=== PATIENT | female | born 1960 | race Caucasian/White ===

== ENCOUNTER 2017-09-22 12:50 | Inpatient (IN) | payer OTHER ==
[2017-09-22] MEDS ORDERED: ONDANSETRON ODT 4 MG TAB PO STA (12:53)
[2017-09-22] MEDS ORDERED: ONDANSETRON 4 MG/2 ML VIAL IVP STA (12:54)
[2017-09-22] MEDS ORDERED: HEPARIN SODIUM,PORCINE 5,000 UNIT/ML 1 ML VIAL IV STA ×2 (12:58)
[2017-09-22] MEDS ORDERED: NITROGLYCERIN SL TABS 0.4 MG TAB SUBLINGUAL STA (12:58)
[2017-09-22] MEDS ORDERED: ASPIRIN 81 MG PO STA (12:58)
[2017-09-22] MEDS ORDERED: SODIUM CHLORIDE 0.9% 1,000 ML IV STA (12:58)
[2017-09-22] MEDS ORDERED: NITROGLYCERIN SL TABS 0.4 MG TAB SUBLINGUAL PRN (12:59)
--- NOTE | 2017-09-22 13:01 | ED ---
General Adult HPI - General Chief complaint: Chest Pain Stated complaint: Chest pain Time Seen by Provider: 09/22/17 12:52 Source: patient, RN notes reviewed Mode of arrival: EMS Limitations: no limitations - History of Present Illness Initial comments: Patient is a pleasant 57-year-old female presenting to the emergency department with complaints of chest discomfort. Onset was approximately 30 minutes ago. Discomfort feels like pressure and is severe. Patient does have associated nausea and dyspnea and diaphoresis. No history of similar symptoms previously. Radiation is towards the left arm. - Related Data Home Medications Medication Instructions Recorded Confirmed Atorvastatin [Lipitor] 40 mg PO HS 09/22/17 09/22/17 Cholecalciferol (Vitamin D3) 2,000 unit PO DAILY 09/22/17 09/22/17 [Vitamin D3] Cyanocobalamin [Vitamin B-12] 500 mcg PO DAILY 09/22/17 09/22/17 FLUoxetine HCL [PROzac] 40 mg PO DAILY 09/22/17 09/22/17 Losartan Potassium [Cozaar] 25 mg PO DAILY 09/22/17 09/22/17 Magnesium Oxide [Mag-Ox] 400 mg PO DAILY 09/22/17 09/22/17 Pantoprazole [Protonix] 40 mg PO DAILY 09/22/17 09/22/17 Allergies Allergy/AdvReac Type Severity Reaction Status Date / Time sulfamethoxazole AdvReac Unknown Verified 09/22/17 12:56 [From Bactrim] trimethoprim [From Bactrim] AdvReac Unknown Verified 09/22/17 12:56 Review of Systems ROS Statement: Those systems with pertinent positive or pertinent negative responses have been documented in the HPI. ROS Other: All systems not noted in ROS Statement are negative. Constitutional: Denies: fever Eyes: Denies: eye pain ENT: Denies: ear pain Respiratory: Reports: dyspnea Cardiovascular: Reports: chest pain Endocrine: Denies: fatigue Gastrointestinal: Denies: abdominal pain Genitourinary: Denies: dysuria Musculoskeletal: Denies: back pain Skin: Denies: rash Neurological: Denies: weakness Past Medical History Past Medical History: Hyperlipidemia History of Any Multi-Drug Resistant Organisms: None Reported Additional Past Surgical History / Comment(s): ear Past Psychological History: No Psychological Hx Reported Smoking Status: Current every day smoker Past Alcohol Use History: None Reported Past Drug Use History: None Reported General Exam Limitations: no limitations General appearance: alert, in distress Head exam: Present: atraumatic Eye exam: Present: normal appearance Neck exam: Present: normal inspection Respiratory exam: Present: normal lung sounds bilaterally. Absent: chest wall tenderness Cardiovascular Exam: Present: regular rate, normal rhythm Expanded Peripheral pulses: 2+: Radial (R), Radial (L), Posterior Tibialis (R), Posterior Tibialis (L) GI/Abdominal exam: Present: soft. Absent: distended, tenderness Extremities exam: Present: normal inspection. Absent: pedal edema, calf tenderness Neurological exam: Present: alert Psychiatric exam: Present: normal affect, normal mood Skin exam: Present: diaphoretic Course Vital Signs 09/22/17 12:52 Pulse Rate 76 Respiratory 18 Rate Blood Pressure 112/63 O2 Sat by Pulse 96 Oximetry - Reevaluation(s) Reevaluation #1: 09/22/17 13:00 Practitioner Sarah watkins was notified and was in the emergency department evaluating patient. Case was also discussed with cardiology Dr. Scanlon. Dr Decker has been paged for admission. 09/22/17 13:04 Patient has gone to [facility]. EKG Findings - EKG Comments: EKG Findings:: Normal sinus rhythm 75. PA 170. QRS 86. QT 410. QTc 457. Normal axis. Significant inferior ST elevation. there is some ST depression V1 and V2. Normal QRS. Medical Decision Making - Medical Decision Making Case was earlier discussed with Dr. Decker, who will admit for [facility]. - Lab Data Result diagrams: 09/22/17 12:51 09/22/17 12:51 Lab Results 09/22/17 09/22/17 09/22/17 Range/Units 12:51 12:51 12:51 WBC 10.0 (3.8-10.6) k/uL RBC 4.92 (3.80-5.40) m/uL Hgb 14.1 (11.4-16.0) gm/dL Hct 41.3 (34.0-46.0) % MCV 83.9 (80.0-100.0) fL MCH 28.6 (25.0-35.0) pg MCHC 34.0 (31.0-37.0) g/dL RDW 12.8 (11.5-15.5) % Plt Count 449 (150-450) k/uL PT (9.0-12.0) sec INR (<1.2) APTT (22.0-30.0) sec Sodium 138 (137-145) mmol/L Potassium 3.8 (3.5-5.1) mmol/L Chloride 105 (98-107) mmol/L Carbon Dioxide 22 (22-30) mmol/L Anion Gap 11 mmol/L BUN 11 (7-17) mg/dL Creatinine 0.64 (0.52-1.04) mg/dL Est GFR (MDRD) Af Amer >60 (>60 ml/min/1.73 sqM) Est GFR (MDRD) Non-Af >60 (>60 ml/min/1.73 sqM) Glucose 118 H (74-99) mg/dL Calcium 9.8 (8.4-10.2) mg/dL Total Bilirubin 0.4 (0.2-1.3) mg/dL AST 26 (14-36) U/L ALT 40 (9-52) U/L Alkaline Phosphatase 111 (38-126) U/L Total Creatine Kinase 90 (30-135) U/L CK-MB (CK-2) 1.0 (0.0-2.4) ng/mL CK-MB (CK-2) Rel Index 1.1 Troponin I 0.033 (0.000-0.034) ng/mL Total Protein 6.7 (6.3-8.2) g/dL Albumin 4.3 (3.5-5.0) g/dL 09/22/17 Range/Units 12:51 WBC (3.8-10.6) k/uL RBC (3.80-5.40) m/uL Hgb (11.4-16.0) gm/dL Hct (34.0-46.0) % MCV (80.0-100.0) fL MCH (25.0-35.0) pg MCHC (31.0-37.0) g/dL RDW (11.5-15.5) % Plt Count (150-450) k/uL PT 10.1 (9.0-12.0) sec INR 1.0 (<1.2) APTT 25.6 (22.0-30.0) sec Sodium (137-145) mmol/L Potassium (3.5-5.1) mmol/L Chloride (98-107) mmol/L Carbon Dioxide (22-30) mmol/L Anion Gap mmol/L BUN (7-17) mg/dL Creatinine (0.52-1.04) mg/dL Est GFR (MDRD) Af Amer (>60 ml/min/1.73 sqM) Est GFR (MDRD) Non-Af (>60 ml/min/1.73 sqM) Glucose (74-99) mg/dL Calcium (8.4-10.2) mg/dL Total Bilirubin (0.2-1.3) mg/dL AST (14-36) U/L ALT (9-52) U/L Alkaline Phosphatase (38-126) U/L Total Creatine Kinase (30-135) U/L CK-MB (CK-2) (0.0-2.4) ng/mL CK-MB (CK-2) Rel Index Troponin I (0.000-0.034) ng/mL Total Protein (6.3-8.2) g/dL Albumin (3.5-5.0) g/dL - Radiology Data Interpreted by me: Chest x-ray shows no gross abnormality. No mediastinal widening. Disposition Clinical Impression: ST elevation myocardial infarction (STEMI) Disposition: ADMITTED IP TO THIS [facility] Condition: Critical Decision Time: 13:04
[2017-09-22] MEDS ORDERED: ATORVASTATIN 80 MG TAB PO STA (13:03)
[2017-09-22 13:09] LABS: HCT 41.3 % (34.0-46.0); HGB 14.1 gm/dL (11.4-16.0); MCH 28.6 pg (25.0-35.0); MCV 83.9 fL (80.0-100.0); Mean Platelet Volume 6.7; Platelet Count 449 k/uL (150-450); RBC 4.92 m/uL (3.80-5.40); RDW 12.8 % (11.5-15.5)
[2017-09-22 13:13] LABS: Partial Thromboplastin Time 25.6 sec (22.0-30.0); Prothrombin Time 10.1 sec (9.0-12.0)
[2017-09-22] MEDS ORDERED: MORPHINE SULFATE 4 MG/ML SYRINGE IVP ONE (13:13)
--- NOTE | 2017-09-22 13:13 | XR ---
EXAMINATION TYPE: XR chest 1V portable DATE OF EXAM: 09/22/2017 Comparison: 07/01/2013 Clinical History: 57-year-old female with chest pain Findings: Heart normal size. Aorta and pulmonary vasculature within normal limits. Some stringy atelectasis at the left base. No consolidation or pleural effusion. Impression: Strandy left basilar atelectasis. No acute cardiopulmonary process.
[2017-09-22] MEDS ORDERED: TIROFIBAN 12.5MG-250ML NS 250 ML IV ONE (13:16)
[2017-09-22] MEDS ORDERED: TIROFIBAN BOLUS 12.5MG/250 ML BAG IV ONE ×2 (13:17→13:19)
[2017-09-22 13:18] LABS: ALT 40 U/L (9-52); AST 26 U/L (14-36); Albumin 4.3 g/dL (3.5-5.0); Alkaline Phosphatase 111 U/L (38-126); Anion Gap 11 mmol/L; Blood Urea Nitrogen 11 mg/dL (7-17); Calcium 9.8 mg/dL (8.4-10.2); Carbon Dioxide 22 mmol/L (22-30); Chloride 105 mmol/L (98-107); Glucose 118 mg/dL (74-99); Potassium 3.8 mmol/L (3.5-5.1); Sodium 138 mmol/L (137-145); Total Bilirubin 0.4 mg/dL (0.2-1.3); Total Protein 6.7 g/dL (6.3-8.2)
[2017-09-22] MEDS ORDERED: LIDOCAINE 2% INJ 20 MG/ML SQ ONE (13:19)
[2017-09-22] MEDS ORDERED: TIROFIBAN 12.5MG-0.9% NS PMX 250 ML BAG IV ONE (13:24)
--- NOTE | 2017-09-22 13:27 | P.CRDCN ---
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 EMS was called and the patient was brought to [facility] ER, the patient initial EKG performed on arrival here showed an acute inferior lateral ST elevation myocardial infarction. Patient was given aspirin, IV heparin bolus, sublingual nitroglycerin, Lipitor, and Dilaudid 0.5mg for pain. Patient was advised that she would need to go directly to the cardiac catheterization lab to undergo cardiac catheterization emergently. The risks and benefits were explained to the patient in detail. Chest x-ray was performed and patient was brought directly to the cardiac catheterization lab. Procedure to be performed by Dr. Sky Scanlon. Past Medical History Past Medical History: Hyperlipidemia History of Any Multi-Drug Resistant Organisms: None Reported Additional Past Surgical History / Comment(s): ear Past Psychological History: No Psychological Hx Reported Smoking Status: Current every day smoker Past Alcohol Use History: None Reported Past Drug Use History: None Reported Medications and Allergies Home Medications Medication Instructions Recorded Confirmed Type Unable To Assess [Unable to Assess] 09/22/17 09/22/17 History Allergies Allergy/AdvReac Type Severity Reaction Status Date / Time sulfamethoxazole AdvReac Unknown Verified 09/22/17 12:56 [From Bactrim] trimethoprim [From Bactrim] AdvReac Unknown Verified 09/22/17 12:56 Physical Exam Vitals: Vital Signs Pulse Resp BP Pulse Ox 09/22/17 12:52 76 18 112/63 96 Intake and Output 09/21/17 09/22/17 09/22/17 22:59 06:59 14:59 Other: Weight 74.843 kg Patient Weight 09/23/17 06:59 Weight 74.843 kg PHYSICAL EXAMINATION: HEENT: Head is atraumatic, normocephalic. Pupils equal, round. Neck is supple. There is no elevated jugular venous pressure. HEART EXAMINATION: Heart S1, S2 normal. No murmur or gallop heard. CHEST EXAMINATION:[ Lungs are clear to auscultation and precussion. Patient was having a chest discomfort which she rated at a 10 out of 10. ABDOMEN: Soft, nontender. Bowel sounds are heard. No organomegaly noted. EXTREMITIES: 2+ peripheral pulses with no evidence of peripheral edema and no calf tenderness noted. NEUROLOGIC patient is awake, alert and oriented -3. . Results 09/22/17 12:51 Coagulation 09/22/17 Range/Units 12:51 PT 10.1 (9.0-12.0) sec APTT 25.6 (22.0-30.0) sec CBC 09/22/17 Range/Units 12:51 WBC 10.0 (3.8-10.6) k/uL RBC 4.92 (3.80-5.40) m/uL Hgb 14.1 (11.4-16.0) gm/dL Hct 41.3 (34.0-46.0) % Plt Count 449 (150-450) k/uL Current Medications Generic Name Dose Route Start Last Admin Trade Name Freq PRN Reason Stop Dose Admin Sodium Chloride 1,000 mls @ 999 mls/hr 09/22/17 12:58 09/22/17 13:02 Saline 0.9% IV 09/22/17 13:58 999 mls/hr .Q1H1M STA Administration Nitroglycerin 0.4 mg 09/22/17 12:59 Nitrostat SUBLINGUAL Q5M PRN Chest Pain Intake and Output 09/21/17 09/22/17 09/22/17 22:59 06:59 14:59 Other: Weight 74.843 kg Patient Weight 09/23/17 06:59 Weight 74.843 kg 09/22/17 12:51 EKG Interpretations (text) EKG showed normal sinus rhythm with ST elevation in the inferior and lateral leads. ST depression noted in the anterior leads. Assessment and Plan Plan: Assessment and plan #[address] elevation PR #2 nicotine dependence #3 hypertension #4 hyperlipidemia Plan Patient was taken directly to the cardiac catheterization lab, risks and benefits were explained to the patient in detail. Further recommendations to follow. DNP note has been reviewed, I agree with a documented findings and plan of care. Patient was seen and examined.
[2017-09-22] MEDS ORDERED: DOPamine DRIP 800 MG in DEXTROSE/WATER 1 500ML.BAG IV ONE (13:33)
[2017-09-22] MEDS ORDERED: METOPROLOL TARTRATE 5 MG/5 ML VIAL IVP ONE (13:38)
[2017-09-22 13:44] LABS: Troponin I 0.033 ng/mL (0.000-0.034)
[2017-09-22] MEDS ORDERED: SODIUM CHLORIDE 0.9% 1,000 ML IV ONE (13:45)
[2017-09-22] MEDS ORDERED: NITROGLYCERIN 1000MCG/10ML SYRINGE INTRACORON ONE (13:48)
[2017-09-22] MEDS ORDERED: TICAGRELOR 90 MG TAB PO ONE (13:49)
[2017-09-22] MEDS ORDERED: TICAGRELOR 90 MG TAB ONE (13:50)
[2017-09-22] MEDS ORDERED: IOHEXOL 350 MG/ML (PER ML) 100ML BTL INJ ONE (13:57)
[2017-09-22 14:31] LABS: Glucose,Whole Blood 110 mg/dL (75-99)
[2017-09-22] MEDS ORDERED: RX INFO: IV CONTRAST WAS GIVEN 1 EACH MISC MISCELLANE PRN (14:44)
[2017-09-22] MEDS ORDERED: TIROFIBAN 12.5MG-250ML NS 250 ML IV SCH (15:15)
--- NOTE | 2017-09-22 15:39 | P.HPIM ---
History of Present Illness H&P Date: 09/22/17 Chief Complaint: Chest pain This is a 57-year-old female, patient of [facility]. She has a known past medical history of hyperlipidemia, nicotine dependence and depression. Patient reports she takes the Cozaar not for hypertension but was found to have calcifications in her aorta. Patient presents to the emergency room with complaints of chest pain in the center of her chest that radiated down the back of her left arm. Symptoms started around noon. EMS was called and she was brought into [facility] ER. Initial EKG had shown an acute inferior lateral ST elevation myocardial infarction. She was started on IV heparin given aspirin and nitro and Lipitor. And also given pain medication. Cardiology with notified immediately and we'll consult patient in the emergency room and took her immediately to the cardiac cath rn. Patient is now in the ICU status post stent to the RCA. She did require dopamine for a few minutes after surgery for bradycardia. It is now resolved and she is off of dopamine. Patient is chest pain-free at this time. She does report having had a stress test a little over a month ago that was negative. Patient admits to having some nausea, diaphoresis and shortness of breath with her chest pain. Patient denies any fever or chills or sweats. Denies any vomiting. Denies any bowel movement changes or urinary symptoms. She does have a significant family history for heart disease. Review of Systems Please refer to HPI otherwise unremarkable Past Medical History Past Medical History: Hyperlipidemia History of Any Multi-Drug Resistant Organisms: None Reported Additional Past Surgical History / Comment(s): ear Past Psychological History: No Psychological Hx Reported Smoking Status: Current every day smoker Past Alcohol Use History: None Reported Past Drug Use History: None Reported Additional History: Brother with heart disease and LA age 42. Dad open-heart surgery Medications and Allergies Home Medications Medication Instructions Recorded Confirmed Type Atorvastatin [Lipitor] 40 mg PO HS 09/22/17 09/22/17 History Cholecalciferol (Vitamin D3) 2,000 unit PO DAILY 09/22/17 09/22/17 History [Vitamin D3] Cyanocobalamin [Vitamin B-12] 500 mcg PO DAILY 09/22/17 09/22/17 History FLUoxetine HCL [PROzac] 40 mg PO DAILY 09/22/17 09/22/17 History Losartan Potassium [Cozaar] 25 mg PO DAILY 09/22/17 09/22/17 History Magnesium Oxide [Mag-Ox] 400 mg PO DAILY 09/22/17 09/22/17 History Pantoprazole [Protonix] 40 mg PO DAILY 09/22/17 09/22/17 History Allergies Allergy/AdvReac Type Severity Reaction Status Date / Time sulfamethoxazole AdvReac Unknown Verified 09/22/17 12:56 [From Bactrim] trimethoprim [From Bactrim] AdvReac Unknown Verified 09/22/17 12:56 Physical Exam Vitals: Vital Signs Pulse Resp BP Pulse Ox 09/22/17 12:52 76 18 112/63 96 Intake and Output 09/22/17 09/22/17 09/22/17 06:59 14:59 22:59 Intake Total 835.52 Balance 835.52 Intake: IV 835.52 Other: Weight 74.843 kg Patient Weight 09/23/17 06:59 Weight 74.843 kg Head normocephalic Neck supple Lungs clear to auscultation bilaterally no wheezing or crackles Heart regular rate and rhythm S1-S2, no rub or gallop Abdomen is soft nontender nondistended positive bowel sounds no hepatosplenomegaly Extremities no edema Neuro alert and orientated to 3 Results CBC & Chem 7: 09/22/17 12:51 09/22/17 12:51 Labs: Abnormal Lab Results - Last 24 Hours (Table) 09/22/17 09/22/17 Range/Units 12:51 14:29 Glucose 118 H (74-99) mg/dL POC Glucose (mg/dL) 110 H (75-99) mg/dL Assessment and Plan Assessment: 1. Acute inferior lateral ST elevated myocardial infarction: Underwent emergent heart catheterization with stent to the RCA. Cardiology is added Brilinta, aspirin 81 mg daily and Lipitor 80 mg daily to patient's regimen 2. Nicotine dependence: Discussed smoking cessation for greater than 3 minutes. We'll add nicotine patch 3. Hyperlipidemia cardiology is increased her Lipitor to 80 mg daily 4. Atelectasis noted on chest x-ray order incentive spirometer. 5. GERD continue Protonix Time with Patient: Greater than 30 (Greater than 50% of the total time spent in counseling and coordination of care.I performed an examination of the patient and discussed their management with the physician Environmental Science Professor. I have reviewed the Physician Environmental Science Professor's notes and agree with the documented findings and plan of care)
[2017-09-22] MEDS ORDERED: ATROPINE SULFATE 0.1 MG/ML 10ML SYRINGE ONE (16:03)
[2017-09-22] MEDS ORDERED: POTASSIUM CHLORIDE ER 20 MEQ TAB.ER PO STA (16:27)
[2017-09-22] MEDS: SODIUM CHLORIDE 0.9% 1,000 ML IV SCH ×2 (17:32→23:42)
[2017-09-22] MEDS: NICOTINE 21MG/24HR PATCH TRANSDERM SCH (19:08)
[2017-09-22] MEDS: LOSARTAN 25 MG TAB PO SCH (20:17)
[2017-09-22] MEDS ORDERED: HYDROmorphone 0.5 MG/0.5 ML SYRINGE IVP PRN (21:27)
--- NOTE | 2017-09-22 22:23 | CC ---
CARDIAC CATHETERIZATION REPORT DATE OF SERVICE: 09/22/2017. PROCEDURES: 1. Left heart catheterization and coronary angiography. 2. Percutaneous transluminal coronary angioplasty and stenting of totally occluded dominant mid right coronary artery in the setting of an acute inferior ST-elevation myocardial infarction with reperfusion accomplished in 38 minutes. Moderate conscious sedation time 39 minutes. Moderate conscious sedation was provided with a combination of fentanyl and Versed along with Benadryl and patient was monitored very closely with oxygen saturation, vital signs and rhythm strips. CLINICAL INFORMATION: Ms. Gabrielle Aparicio is a lady with a history of underlying depression who has a primary care physician by name Dr. Laurita Hopper. She presented to the hospital with chest pain and ST elevation involving the inferior apical lateral leads suggestive of acute inferior ST-elevation NH. She was evaluated by nurse practitioner Dr. Sarah Kenny and then I evaluated the patient in the cath via supervisor laboratory and noted that she was having a 10/10 pain, but remained hemodynamically stable. I advised urgent cardiac catheterization and proceeded to perform the procedure expeditiously. The patient had allergies to SULFA. She had a strong family history of CAD and she has smoked 1 to 1-1/2 packs daily. Cholesterol status is unknown. She has no hypertension or diabetes. Her brother had an NH at less than 45 years of age and her parents also apparently had a heart attack at an early age. PROCEDURE NOTE: Under local anesthesia and strict aseptic precautions, a 6-C[place]ican introducer was placed in the right femoral artery using a micropuncture technique. Using a standard right Yumiko diagnostic catheter, I performed selective coronary angiography of the right coronary artery and noted that it was totally occluded. I then performed selective coronary angiography of the left system with a standard left Yumiko catheter. I noted that there was noncritical disease, but diffuse disease was noted in the left system. I then performed prompt intervention of the RCA and then after the intervention of the RCA, I checked LV pressures, but did not perform an LV gram. The sheath was sutured and patient was sent to the room in a stable condition. During the procedure, the patient became hypotensive and required IV fluids and also dopamine for a short while. With this, she developed nausea, vomiting, emesis that occurred in the supervisor laboratory. Very transiently I used dopamine, but then this was discontinued and her blood pressure stabilized very nicely. The patient received Aggrastat 2 boluses and infusion as per protocol and she also received 180 mg of Brilinta in the supervisor laboratory. The sheath was sutured and she was sent to the ICU in a stable condition. The findings and results were discussed with the patient and her sister. CARDIAC CATHETERIZATION FINDINGS: The left ventricular end-diastolic pressure was about 15 mmHg without any gradient across the aortic valve. CORONARY ANGIOGRAPHY FINDINGS: Right coronary artery: A very dominant vessel, moderately calcified, totally occluded in the midportion after 2 small acute marginal branches. This is a very large artery that divides into a large acute marginal branch distally and then bifurcates into a large distribution PDA and PLV, both of which have diffuse disease, but no critical stenosis. RCA is dominant, occluded in the midportion. Left main coronary artery: Short, patent vessel, free of significant disease that bifurcates into LAD and circumflex. There is mild calcification noted in the left main coronary artery. Left anterior descending coronary artery: This is a good caliber vessel and a good distribution vessel, had a 30%-40% lesion in the proximal 1/3, gives off a large sized diagonal branch and then there is another 40% lesion which is long and calcified and the vessel runs all the way to the apex, supplying a sizable amount of myocardium, giving off septal branches. The LAD is therefore a diffusely diseased vessel with lesions of anywhere between 30%-45% throughout with some calcification. Left posterior circumflex coronary artery: Technically this is a nondominant vessel, gives off a single obtuse marginal that runs laterally and there is an AV groove branch that is tortuous and has mild irregularities. No significant disease in the circumflex system. Left ventriculogram: This was not performed. 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 An left ventriculogram was not performed. RECOMMENDATIONS: I proceeded to perform intervention of the totally occluded RCA in the same setting. PCI PROCEDURE DETAILS: The standard right Yumiko type guide catheter of 6-C[place]ican caliber was used to cannulate the right coronary artery. A BMW wire was used to cross the lesion. Pre- dilatation was performed using a 2.5 caliber 12 mm Trek balloon. Multiple inflations were given. This was a very long lesion. I then used a 33 mm long 2.75 caliber Xience stent and deployed this. The distal end of the stent was placed just a little bit before the bifurcation and the proximal end of the stent was at the total occlusion. Excellent angiographic result was achieved. Distally beyond the stented segment, there was about a 40% lesion, but there was also diffuse disease in this segment of RCA. I tried to advance an 8 mm 2.5 caliber Xience stent, but the stent kept butting against the previously placed stent and therefore I decided not to pursue this anymore. I used 2 wires, but even with this, I was unable to advance the stent. I felt that we had a YANELIS-3 flow. Patient had relief of chest pain and remarkable improvement in ST-segment changes and hemodynamic stability and therefore I decided not to pursue any further intervention. We had an excellent angiographic result with a YANELIS-3 flow. The entire RCA was opacified and the ST segments improved remarkably. I therefore discussed with the patient the results, sutured the sheath, went and spoke to the patient's daughter and sent her to the ICU with the understanding that the sheath would be pulled in the next 3 hours. The ACT was about 270. Excellent angiographic result without complication was achieved. Results were discussed with the patient and family. MMODL / IJN: [id number] /
--- NOTE | 2017-09-22 22:35 | LTR ---
Dear Dr. Hopper: I an hereby sending you a procedure note on Mrs. Gabrielle Aparicio. This lady presented with acute inferior MA, underwent stenting of RCA with excellent angiographic result. Her right groin has some ecchymosis. She will be watched very closely for the next 48 hours. She has a drug-eluting stent and should be on a dual antiplatelet therapy for a 1 year without interruption. Thank you for your referral and please do call for questions. With kindest regards. Sincerely yours, MMODL / IJN: [id number] /
[2017-09-23 05:18] LABS: Basophils % (A) 0 %; Eosinophils # (A) 0.1 k/uL (0-0.7); Eosinophils % (A) 1 %; HCT 39.1 % (34.0-46.0); HGB 12.8 gm/dL (11.4-16.0); Lymphocytes # (A) 1.1 k/uL (1.0-4.8); Lymphocytes % (A) 13 %; MCH 28.3 pg (25.0-35.0); MCHC 32.6 g/dL (31.0-37.0); MCV 86.8 fL (80.0-100.0); Mean Platelet Volume 6.7; Monocytes # (A) 0.4 k/uL (0-1.0); Monocytes % (A) 5 %; Neutrophils # (A) 6.4 k/uL (1.3-7.7); Neutrophils % (A) 79 %; Platelet Count 325 k/uL (150-450); RBC 4.51 m/uL (3.80-5.40); RDW 12.8 % (11.5-15.5); WBC 8.1 k/uL (3.8-10.6)
[2017-09-23 05:30] LABS: Anion Gap 8 mmol/L; Blood Urea Nitrogen 8 mg/dL (7-17); Calcium 9.1 mg/dL (8.4-10.2); Carbon Dioxide 27 mmol/L (22-30); Chloride 106 mmol/L (98-107); Glucose 113 mg/dL (74-99); Magnesium 1.8 mg/dL (1.6-2.3); Potassium 4.2 mmol/L (3.5-5.1); Sodium 141 mmol/L (137-145)
[2017-09-23] MEDS: MAGNESIUM SULFATE-D5W PMX 1 GM in DEXTROSE/WATER 1 100ML.BAG IVPB SCH ×2 (08:27→09:56)
[2017-09-23] MEDS: MAGNESIUM OXIDE 400 MG TAB PO SCH (08:28)
[2017-09-23] MEDS: ASPIRIN 81 MG PO SCH (08:28)
[2017-09-23] MEDS: PANTOPRAZOLE 40 MG TABLET PO SCH (08:28)
[2017-09-23] MEDS: FLUoxetine HCL 20 MG CAP PO SCH (08:28)
[2017-09-23] MEDS: TICAGRELOR 90 MG TAB PO SCH ×2 (08:29→20:25)
[2017-09-23] MEDS: ATORVASTATIN 80 MG TAB PO SCH (08:29)
[2017-09-23] MEDS: NICOTINE 21MG/24HR PATCH TRANSDERM SCH (08:30)
[2017-09-23] MEDS ORDERED: FLUoxetine HCL 20 MG CAP PO SCH (09:00)
--- NOTE | 2017-09-23 10:30 | ECHOF ---
Referral Reason:STEMI MEASUREMENTS -------- HEIGHT: 170.2 cm WEIGHT: 74.8 kg BP: 133/71 IVSd: 1.1 cm (0.6 - 1.1) LVIDd: 4.7 cm (3.9 - 5.3) LVPWd: 0.7 cm (0.6 - 1.1) IVSs: 1.5 cm LVIDs: 3.2 cm LVPWs: 0.9 cm LAESV Index (A-L): 17.62 ml/m EPSS: 0.8 cm MV E Manav: 0.39 m/s MV DecT: 266 ms MV A Manav: 0.67 m/s MV E/A Ratio: 0.58 RAP: 5.00 mmHg RVSP: 18.29 mmHg MV EF SLOPE: 63.12 mm/s (70 - 150) MV EXCURSION: 2.41 cm (> 18.000) FINDINGS -------- Sinus rhythm. This was a technically good study. The left ventricular size is normal. There is mild concentric left ventricular hypertrophy. Overa ll left ventricular systolic function is low-normal with, an EF between 50 - 55 %. Basal inferior L V wall motion is hypokinetic. The right ventricle is normal in size. Normal LA size by volume 22+/-6 ml/m2. The right atrial size is normal. The aortic valve is trileaflet, and appears structurally normal. No aortic stenosis or regurgitation. Mild mitral regurgitation is present. Mild tricuspid regurgitation present. There is no evidence of pulmonary hypertension. The right v entricular systolic pressure, as measured by Doppler, is 18.29mmHg. There is no pulmonic regurgitation present. The aortic root size is normal. There is no pericardial effusion. CONCLUSIONS -------- 1. Sinus rhythm. 2. The left ventricular size is normal. 3. There is mild concentric left ventricular hypertrophy. 4. Overall left ventricular systolic function is low-normal with, an EF between 50 - 55 %. 5. Basal inferior LV wall motion is hypokinetic. 6. The right ventricle is normal in size. 7. Normal LA size by volume 22+/-6 ml/m2. 8. The aortic valve is trileaflet, and appears structurally normal. No aortic stenosis or regurgitati on. 9. Mild mitral regurgitation is present. 10. Mild tricuspid regurgitation present. 11. There is no evidence of pulmonary hypertension. 12. The right ventricular systolic pressure, as measured by Doppler, is 18.29mmHg. 13. There is no pulmonic regurgitation present. 14. The aortic root size is normal. 15. There is no pericardial effusion. STEEL ERECTING PUSHER: Keyonna Magdaleno RDCS
--- NOTE | 2017-09-23 12:07 | P.PN ---
Subjective Progress Note Date: 09/23/17 This is a 57-year-old female, patient of [facility]. She has a known past medical history of hyperlipidemia, nicotine dependence and depression. Patient reports she takes the Cozaar not for hypertension but was found to have calcifications in her aorta. Patient presents to the emergency room with complaints of chest pain in the center of her chest that radiated down the back of her left arm. Symptoms started around noon. EMS was called and she was brought into [facility] ER. Initial EKG had shown an acute inferior lateral ST elevation myocardial infarction. She was started on IV heparin given aspirin and nitro and Lipitor. And also given pain medication. Cardiology with notified immediately and we'll consult patient in the emergency room and took her immediately to the quality assurance lab technician. Patient is now in the ICU status post stent to the RCA. She did require dopamine for a few minutes after surgery for bradycardia. It is now resolved and she is off of dopamine. Patient is chest pain-free at this time. She does report having had a stress test a little over a month ago that was negative. Patient admits to having some nausea, diaphoresis and shortness of breath with her chest pain. Patient denies any fever or chills or sweats. Denies any vomiting. Denies any bowel movement changes or urinary symptoms. She does have a significant family history for heart disease. 09/23/2017 she currently ICU. Anticipating a transfer out of the ICU today. Patient is chest pain-free. Denies any nausea or vomiting. Denies any bowel movement changes or urinary symptoms. Objective - Vital Signs Vital signs: Vital Signs Temp 98.1 F 09/23/17 08:00 Pulse 83 09/23/17 10:00 Resp 18 09/23/17 10:00 BP 108/54 09/23/17 10:00 Pulse Ox 96 09/23/17 10:00 Intake & Output 09/22/17 09/23/17 09/23/17 18:59 06:59 18:59 Intake Total 1135.52 2060 200 Output Total 2950 0 Balance 1135.52 -890 200 Weight 74 kg 74 kg Intake: IV 1135.52 600 200 Magnesium Sulfate-D5w Pmx 200 1 gm In Dextrose/Water 1 100ml.bag @ 100 mls/hr IVPB Q1H [facility] Rx#: [id number] Sodium Chloride 0.9% 1, 300 600 000 ml @ 100 mls/hr IV . Q10H [facility] Rx#:[id number] Oral 1460 Output: Urine 2950 0 Other: Voiding Method Toilet # Voids 1 ABP, PAP, CO, CI - Last Documented Arterial Blood Pressure 139/69 - Exam Head normocephalic Neck supple Lungs clear to auscultation bilaterally no wheezing or crackles Heart regular rate and rhythm S1-S2, no rub or gallop Abdomen is soft nontender nondistended positive bowel sounds no hepatosplenomegaly Extremities no edema Neuro alert and orientated to 3 - Labs CBC & Chem 7: 09/23/17 04:36 09/23/17 04:36 Labs: Abnormal Lab Results - Last 24 Hours (Table) 09/22/17 09/22/17 09/22/17 Range/Units 12:51 14:29 17:40 Glucose 118 H (74-99) mg/dL POC Glucose (mg/dL) 110 H (75-99) mg/dL Troponin I 9.250 H* (0.000-0.034) ng/mL 09/23/17 09/23/17 Range/Units 00:41 04:36 Glucose 113 H (74-99) mg/dL POC Glucose (mg/dL) (75-99) mg/dL Troponin I 9.000 H* (0.000-0.034) ng/mL Assessment and Plan Assessment: 1. Acute inferior ST elevated myocardial infarction: Underwent emergent heart catheterization with stent to the RCA. Continue Brilinta, aspirin 81 mg daily and Lipitor 80 mg daily. Patient currently chest pain-free 2. Nicotine dependence: Discussed smoking cessation for greater than 3 minutes. We'll add nicotine patch 3. Hyperlipidemia cardiology is increased her Lipitor to 80 mg daily 4. Atelectasis noted on chest x-ray order incentive spirometer. 5. GERD continue Protonix Anticipating transfer out of the ICU today when cleared by cardiology I performed an examination of the patient and discussed their management with the physician Medical Affairs Specialist. I have reviewed the Physician Medical Affairs Specialist's notes and agree with the documented findings and plan of care
[2017-09-23] MEDS: CHOLECALCIFEROL 1,000 UNIT TAB PO SCH (16:34)
[2017-09-23] MEDS: CYANOCOBALAMIN 500 MCG TAB PO SCH (16:34)
--- NOTE | 2017-09-23 17:27 | PN ---
PROGRESS NOTE This lady presented with an ST-elevation [place] yesterday, underwent stenting of a very dominant RCA with a good result. Her right groin has ecchymosis, but there is no hematoma of significance. There is no bruit audible. I am recommending that she should have an echocardiogram, and we will initiate beta blockers which I held yesterday. We will start her at 25 mg b.i.d. of metoprolol tartrate, increase activity. If she does well, consider moving her to telemetry this evening. She has been counseled regarding the need to quit smoking. Blood pressure 120/80, pulse rate 86 per minute. S1, S2 heard normally. Lungs are clear. Abdomen and lower extremity exam unchanged. Right groin is clean and dry with evidence of ecchymosis but no hematoma. There is no bruit. Beta clyde will be initiated. Other medications will be continued and I will review the echocardiogram. MMODL / IJN: [id number] /
[2017-09-23] MEDS: LOSARTAN 25 MG TAB PO SCH (20:25)
[2017-09-23] MEDS: METOPROLOL TARTRATE 25 MG TAB PO SCH (20:25)
[2017-09-24 04:30] LABS: Basophils % (A) 1 %; Eosinophils # (A) 0.1 k/uL (0-0.7); Eosinophils % (A) 2 %; HCT 36.2 % (34.0-46.0); HGB 11.9 gm/dL (11.4-16.0); Lymphocytes # (A) 1.2 k/uL (1.0-4.8); Lymphocytes % (A) 18 %; MCH 28.3 pg (25.0-35.0); MCHC 32.8 g/dL (31.0-37.0); Mean Platelet Volume 6.9; Monocytes # (A) 0.4 k/uL (0-1.0); Monocytes % (A) 6 %; Neutrophils # (A) 4.7 k/uL (1.3-7.7); Neutrophils % (A) 71 %; Platelet Count 272 k/uL (150-450); RBC 4.21 m/uL (3.80-5.40); RDW 12.7 % (11.5-15.5); WBC 6.6 k/uL (3.8-10.6)
[2017-09-24 04:41] LABS: Anion Gap 6 mmol/L; Blood Urea Nitrogen 9 mg/dL (7-17); Carbon Dioxide 27 mmol/L (22-30); Chloride 105 mmol/L (98-107); Glucose 98 mg/dL (74-99); Magnesium 1.9 mg/dL (1.6-2.3); Potassium 4.4 mmol/L (3.5-5.1); Sodium 138 mmol/L (137-145)
[2017-09-24] MEDS: ASPIRIN 81 MG PO SCH (07:59)
[2017-09-24] MEDS: CHOLECALCIFEROL 1,000 UNIT TAB PO SCH (07:59)
[2017-09-24] MEDS: MAGNESIUM OXIDE 400 MG TAB PO SCH (08:00)
[2017-09-24] MEDS: TICAGRELOR 90 MG TAB PO SCH ×2 (08:00→20:50)
[2017-09-24] MEDS: NICOTINE 21MG/24HR PATCH TRANSDERM SCH (08:00)
[2017-09-24] MEDS: FLUoxetine HCL 20 MG CAP PO SCH (08:00)
[2017-09-24] MEDS: CYANOCOBALAMIN 500 MCG TAB PO SCH (08:00)
[2017-09-24] MEDS: MAGNESIUM SULFATE-D5W PMX 1 GM in DEXTROSE/WATER 1 100ML.BAG IVPB SCH ×2 (08:01→09:35)
[2017-09-24] MEDS: METOPROLOL TARTRATE 25 MG TAB PO SCH (08:01)
[2017-09-24] MEDS: ATORVASTATIN 80 MG TAB PO SCH (08:01)
[2017-09-24] MEDS: PANTOPRAZOLE 40 MG TABLET PO SCH (08:01)
--- NOTE | 2017-09-24 16:39 | P.PN ---
Subjective Progress Note Date: 09/24/17 This is a 57-year-old female, patient of [facility]. She has a known past medical history of hyperlipidemia, nicotine dependence and depression. Patient reports she takes the Cozaar not for hypertension but was found to have calcifications in her aorta. Patient presents to the emergency room with complaints of chest pain in the center of her chest that radiated down the back of her left arm. Symptoms started around noon. EMS was called and she was brought into [facility] ER. Initial EKG had shown an acute inferior lateral ST elevation myocardial infarction. She was started on IV heparin given aspirin and nitro and Lipitor. And also given pain medication. Cardiology with notified immediately and we'll consult patient in the emergency room and took her immediately to the bed laborer. Patient is now in the ICU status post stent to the RCA. She did require dopamine for a few minutes after surgery for bradycardia. It is now resolved and she is off of dopamine. Patient is chest pain-free at this time. She does report having had a stress test a little over a month ago that was negative. Patient admits to having some nausea, diaphoresis and shortness of breath with her chest pain. Patient denies any fever or chills or sweats. Denies any vomiting. Denies any bowel movement changes or urinary symptoms. She does have a significant family history for heart disease. 09/23/2017 she currently ICU. Anticipating a transfer out of the ICU today. Patient is chest pain-free. Denies any nausea or vomiting. Denies any bowel movement changes or urinary symptoms. On 09/24 2017 patient was seen and examined she is alert and oriented 3 in no apparent distress no chest pain or shortness of breath patient is asymptomatic at this time Objective - Vital Signs Vital signs: Vital Signs Temp 97.1 F L 09/24/17 16:30 Pulse 80 09/24/17 16:30 Resp 20 09/24/17 16:30 BP 115/57 09/24/17 16:30 Pulse Ox 98 09/24/17 16:30 Intake & Output 09/23/17 09/24/17 09/24/17 18:59 06:59 18:59 Intake Total 200 450 Output Total 0 Balance 200 450 Weight 69.7 kg Intake: IV 200 Magnesium Sulfate-D5w Pmx 200 1 gm In Dextrose/Water 1 100ml.bag @ 100 mls/hr IVPB Q1H [facility] Rx#: [id number] Oral 450 Output: Urine 0 Other: Voiding Method Toilet Toilet Toilet # Voids 1 1 # Bowel Movements 1 ABP, PAP, CO, CI - Last Documented Arterial Blood Pressure 139/69 - Exam Head normocephalic and atraumatic Neck supple no JVD no goiter no lymphadenopathy Lungs clear to auscultation bilaterally no wheezing or crackles Heart regular rate and rhythm S1-S2, no rub or gallop Abdomen is soft nontender nondistended positive bowel sounds no hepatosplenomegaly Extremities no edema Neuro alert and orientated to 3 - Labs CBC & Chem 7: 09/24/17 04:08 09/24/17 04:08 Assessment and Plan Plan: 1. Acute inferior ST elevated myocardial infarction: Underwent emergent heart catheterization with stent to the RCA. Continue Brilinta, aspirin 81 mg daily and Lipitor 80 mg daily. Patient currently chest pain-free 2. Nicotine dependence: Discussed smoking cessation for greater than 3 minutes. We'll add nicotine patch 3. Hyperlipidemia cardiology is increased her Lipitor to 80 mg daily 4. Atelectasis noted on chest x-ray order incentive spirometer. 5. GERD continue Protonix Possible discharge to home tomorrow
--- NOTE | 2017-09-24 17:04 | PN ---
PROGRESS NOTE This lady is doing much better. Her groin is clean and dry. Pulse is good. She is in sinus rhythm. I am recommending that we reduce the beta-clyde from 25 to 12.5 mg b.i.d. Continue her other medications and move her to telemetry. She suffered from an inferior TN and underwent stenting. If she does well, I will consider discharging her in the next 36 to 48 hours. Vital signs are stable. S1, S2 heard normally. Lungs are clear. Abdomen and lower extremity exam unchanged. Plan is to increase activity and move her to telemetry today. MMODL / IJN: [id number] /
[2017-09-24] MEDS: LOSARTAN 25 MG TAB PO SCH (20:46)
[2017-09-24] MEDS: METOPROLOL TARTRATE 12.5 MG TAB PO SCH (20:46)
[2017-09-25] MEDS: CHOLECALCIFEROL 1,000 UNIT TAB PO SCH (08:28)
[2017-09-25] MEDS: NICOTINE 21MG/24HR PATCH TRANSDERM SCH (08:28)
[2017-09-25] MEDS: ATORVASTATIN 80 MG TAB PO SCH (08:29)
[2017-09-25] MEDS: ASPIRIN 81 MG PO SCH (08:29)
[2017-09-25] MEDS: MAGNESIUM OXIDE 400 MG TAB PO SCH (08:29)
[2017-09-25] MEDS: TICAGRELOR 90 MG TAB PO SCH (08:29)
[2017-09-25] MEDS: METOPROLOL TARTRATE 12.5 MG TAB PO SCH ×2 (08:29→16:11)
[2017-09-25] MEDS: PANTOPRAZOLE 40 MG TABLET PO SCH (08:29)
[2017-09-25] MEDS: FLUoxetine HCL 20 MG CAP PO SCH (08:29)
[2017-09-25] MEDS: CYANOCOBALAMIN 500 MCG TAB PO SCH (08:29)
[2017-09-25 08:34] VITALS: RESP 18
[2017-09-25] MEDS ORDERED: HYDROmorphone 2 MG TAB PO PRN (11:22)
--- NOTE | 2017-09-25 13:50 | P.DS ---
Providers Date of admission: 09/22/17 13:14 Expected date of discharge: 09/25/17 Attending physician: Renetta Decker Consults: 09/23/17 08:03 Consult Physician Stat Consulting Provider: Niya Scanlon Consult Reason/Comments: STEMI Do you want consulting provider notified?: Already Contacted Primary care physician: Anushka [facility] Course: Diagnosis on discharge: 1. Acute inferior ST elevated myocardial infarction: Underwent emergent heart catheterization with stent to the RCA. Continue Brilinta, aspirin 81 mg daily and Lipitor 80 mg daily. Patient currently chest pain-free 2. Nicotine dependence: Discussed smoking cessation for greater than 3 minutes. We'll add nicotine patch 3. Hyperlipidemia cardiology is increased her Lipitor to 80 mg daily 4. Atelectasis noted on chest x-ray order incentive spirometer. 5. GERD continue Protonix Hospital course: This is a 57-year-old female, patient of [facility]. She has a known past medical history of hyperlipidemia, nicotine dependence and depression. Patient reports she takes the Cozaar not for hypertension but was found to have calcifications in her aorta. Patient presents to the emergency room with complaints of chest pain in the center of her chest that radiated down the back of her left arm. Symptoms started around noon. EMS was called and she was brought into [facility] ER. Initial EKG had shown an acute inferior lateral ST elevation myocardial infarction. She was started on IV heparin given aspirin and nitro and Lipitor. And also given pain medication. Cardiology with notified immediately and we'll consult patient in the emergency room and took her immediately to the slab polisher. Patient is now in the ICU status post stent to the RCA. She did require dopamine for a few minutes after surgery for bradycardia. It is now resolved and she is off of dopamine. Patient is chest pain-free at this time. She does report having had a stress test a little over a month ago that was negative. Patient admits to having some nausea, diaphoresis and shortness of breath with her chest pain. Patient denies any fever or chills or sweats. Denies any vomiting. Denies any bowel movement changes or urinary symptoms. She does have a significant family history for heart disease. 09/23/2017 she currently ICU. Anticipating a transfer out of the ICU today. Patient is chest pain-free. Denies any nausea or vomiting. Denies any bowel movement changes or urinary symptoms. On 09/24 2017 patient was seen and examined she is alert and oriented 3 in no apparent distress no chest pain or shortness of breath patient is asymptomatic at this time. On 09/25/2017 patient is alert and oriented 3 she is chest pain-free she was evaluated by Dr. BRINDA Scanlon and was cleared for discharge she was counseled again in regard to smoking cessation and was given a prescription for NicoDerm patches. She will follow-up with her primary care physician Dr Anushka Lassiter within one week she will also follow-up with cardiology in 1-2 weeks Patient Condition at Discharge: Stable Plan - Discharge Summary Discharge Rx Participant: Yes New Discharge Prescriptions: No Action Pantoprazole [Protonix] 40 mg PO DAILY Magnesium Oxide [Mag-Ox] 400 mg PO DAILY Losartan Potassium [Cozaar] 25 mg PO DAILY FLUoxetine HCL [PROzac] 40 mg PO DAILY Atorvastatin [Lipitor] 40 mg PO HS Cyanocobalamin [Vitamin B-12] 500 mcg PO DAILY Cholecalciferol (Vitamin D3) [Vitamin D3] 2,000 unit PO DAILY Discharge Medication List Atorvastatin [Lipitor] 40 mg PO HS 09/22/17 [History] Cholecalciferol (Vitamin D3) [Vitamin D3] 2,000 unit PO DAILY 09/22/17 [History] Cyanocobalamin [Vitamin B-12] 500 mcg PO DAILY 09/22/17 [History] FLUoxetine HCL [PROzac] 40 mg PO DAILY 09/22/17 [History] Losartan Potassium [Cozaar] 25 mg PO DAILY 09/22/17 [History] Magnesium Oxide [Mag-Ox] 400 mg PO DAILY 09/22/17 [History] Pantoprazole [Protonix] 40 mg PO DAILY 09/22/17 [History] Follow up Appointment(s)/Referral(s): Anushka Lassiter DO [Primary Care Provider] - 1-2 days
--- NOTE | 2017-09-25 14:57 | PN ---
PROGRESS NOTE Mrs. Aparicio suffered inferior ST-elevation VT. She had a good angiographic result. She had echo revealed ejection fraction of 45-50% with inferobasal hypokinesia. She was slightly hypotensive. I am cutting the Cozaar to 12.5 mg at bedtime. Metoprolol to 12.5 mg daily. Continue aspirin and Brilinta and atorvastatin. She can be discharged today with the understanding I will see her in the office next week. Vitals are stable S1, S2 heard normally. Lungs are clear. Abdomen and lower extremity exam is unchanged. MMODL / IJN: [id number] /
[2017-09-25 16:43] VITALS: BP 113/57; PULSE 65; TEMP 98.6
--- NOTE | 2017-09-26 05:01 | ECHOF ---
Referral Reason:reassess LV function, status post STEMI/PCI MEASUREMENTS -------- HEIGHT: 170.2 cm WEIGHT: 73.9 kg BP: 95/55 IVSd: 0.9 cm (0.6 - 1.1) LVIDd: 4.6 cm (3.9 - 5.3) LVPWd: 0.9 cm (0.6 - 1.1) IVSs: 1.2 cm LVIDs: 3.5 cm LVPWs: 0.8 cm LA Diam: 2.7 cm (2.7 - 3.8) LAESV Index (A-L): 22.20 ml/m Ao Diam: 2.8 cm (2.0 - 3.7) AV Cusp: 1.4 cm (1.5 - 2.6) LA Diam: 3.3 cm (2.7 - 3.8) MV EXCURSION: 16.920 mm (> 18.000) MV EF SLOPE: 113 mm/s (70 - 150) EPSS: 0.6 cm MV E Manav: 0.70 m/s MV DecT: 211 ms MV A Manav: 0.61 m/s MV E/A Ratio: 1.14 RAP: 5.00 mmHg RVSP: 26.24 mmHg FINDINGS -------- Sinus rhythm. This was a technically good study. The left ventricular size is normal. Overall left ventricular systolic function is mildly impaired with, an EF between 45 - 50 %. Inferior basal Hypokinesis The right ventricle is normal in size. Normal LA size by volume 22+/-6 ml/m2. The right atrial size is normal. The aortic valve is trileaflet, and appears structurally normal. No aortic stenosis or regurgitation. The mitral valve leaflets are mildly thickened. Mild mitral regurgitation is present. Mild tricuspid regurgitation present. There is no evidence of pulmonary hypertension. The right v entricular systolic pressure, as measured by Doppler, is 26.24mmHg. There is no pulmonic regurgitation present. The aortic root size is normal. There is no pericardial effusion. CONCLUSIONS -------- 1. The left ventricular size is normal. 2. Overall left ventricular systolic function is mildly impaired with, an EF between 45 - 50 %. 3. Inferior basal Hypokinesis 4. The aortic valve is trileaflet, and appears structurally normal. No aortic stenosis or regurgitati on. 5. The mitral valve leaflets are mildly thickened. 6. Mild mitral regurgitation is present. 7. Mild tricuspid regurgitation present. 8. There is no evidence of pulmonary hypertension. 9. The right ventricular systolic pressure, as measured by Doppler, is 26.24mmHg. 10. There is no pulmonic regurgitation present. 11. The aortic root size is normal. 12. There is no pericardial effusion. TAPPING MACHINE OPERATOR AUTOMATIC: Keyonna Magdaleno RDCS
== END 2017-09-25 18:19 | disposition home or self-care (01) | DRG 247 ==
LOC: SUPCPDRO 12:50 → EC 12:50 → 6ICU 13:14
PROVIDERS: ADMIT Internal Medicine; ATTEND Internal Medicine
PROC: B2111ZZ Fluoroscopy of Multiple Coronary Arteries using Low Osmolar Contrast (ICD-10-PCS; 2017-09-22)
PROC: 027034Z Dilation of Coronary Artery, One Artery with Drug-eluting Intraluminal Device, Percutaneous Approach (ICD-10-PCS; principal; 2017-09-22 13:05)
PROC: 4A023N7 Measurement of Cardiac Sampling and Pressure, Left Heart, Percutaneous Approach (ICD-10-PCS; 2017-09-22 13:05)
DX: I21.19 ST elevation (STEMI) myocardial infarction involving other coronary artery of inferior wall (principal); I95.9 Hypotension, unspecified; J98.11 Atelectasis; E78.5 Hyperlipidemia, unspecified; F17.200 Nicotine dependence, unspecified, uncomplicated; I25.10 Atherosclerotic heart disease of native coronary artery without angina pectoris; K21.9 Gastro-esophageal reflux disease without esophagitis; F32.9 Major depressive disorder, single episode, unspecified; R00.1 Bradycardia, unspecified; I70.0 Atherosclerosis of aorta; Z79.899 Other long term (current) drug therapy; Z88.1 Allergy status to other antibiotic agents; Z88.2 Allergy status to sulfonamides; Z82.49 Family history of ischemic heart disease and other diseases of the circulatory system
CPT/HCPCS: 36415; 71045; 80048; 80053; 82550; 82553; 83735; 84484; 85025; 85027; 85610; 85730; 93005; 93306; 93458; 96374; 99285

== ENCOUNTER 2020-10-23 07:50 | Emergency (ER) | payer OTHER ==
[2020-10-23 07:59] VITALS: TEMP 97.9
[2020-10-23] MEDS ORDERED: MECLIZINE 12.5 MG TAB PO STA (08:17)
[2020-10-23] MEDS ORDERED: SODIUM CHLORIDE 0.9% 1,000 ML IV STA (08:17)
[2020-10-23] MEDS ORDERED: ACETAMINOPHEN TAB 325 MG TAB PO STA (08:21)
[2020-10-23 09:03] LABS: Basophils # (A) 0.1 k/uL (0-0.2); Basophils % (A) 1 %; Eosinophils # (A) 0.2 k/uL (0-0.7); Eosinophils % (A) 2 %; HCT 42.5 % (34.0-46.0); HGB 14.1 gm/dL (11.4-16.0); Lymphocytes # (A) 2.1 k/uL (1.0-4.8); Lymphocytes % (A) 26 %; MCHC 33.1 g/dL (31.0-37.0); MCV 81.7 fL (80.0-100.0); Mean Platelet Volume 7.2; Monocytes # (A) 0.4 k/uL (0-1.0); Monocytes % (A) 5 %; Neutrophils # (A) 5.2 k/uL (1.3-7.7); Neutrophils % (A) 65 %; Platelet Count 369 k/uL (150-450); RDW 13.6 % (11.5-15.5)
[2020-10-23 09:12] LABS: INR 0.9 (<1.2); Prothrombin Time 10.1 sec (9.0-12.0)
[2020-10-23 09:17] LABS: ALT 26 U/L (4-34); AST 31 U/L (14-36); African American GFR (CKD) >90 (>60 ml/min/1.73 sqM); Albumin 4.2 g/dL (3.5-5.0); Alkaline Phosphatase 99 U/L (38-126); Anion Gap 8 mmol/L; Blood Urea Nitrogen 10 mg/dL (7-17); Calcium 9.3 mg/dL (8.4-10.2); Carbon Dioxide 25 mmol/L (22-30); Chloride 103 mmol/L (98-107); Glucose 135 mg/dL (74-99); Non-African American GFR(CKD) >90 (>60 ml/min/1.73 sqM); Sodium 136 mmol/L (137-145); Total Bilirubin 0.9 mg/dL (0.2-1.3); Total Protein 6.8 g/dL (6.3-8.2)
--- NOTE | 2020-10-23 10:03 | ED ---
Dizziness HPI - General Chief Complaint: Dizziness Stated Complaint: Dizziness Source: patient Mode of arrival: ambulatory Limitations: no limitations - History of Present Illness Initial Comments: Patient is a 60-year-old female past medical history of cardiac disease, hyperlipidemia presents emergency Department with reported vertiginous symptoms. Patient awoke this morning and states that she has dizziness upon getting up from bed. It feels as if the room is spinning on her. Admits to history of similar in the past however nothing this significant. He reports that she is to brace herself to ambulate. Admits to a mild headache, 4 out of 10. Did not attempt to take any medications at home for her symptoms. Denies fevers or neck stiffness. No recent head trauma. No chiropractic manipulations of the neck. Denies history of carotid disease. No unilateral numbness or weakness. Denies any chest pain or shortness of breath. Admits to nausea without vomiting. No other alleviating, precipitating or modifying factors - Related Data Home Medications Medication Instructions Recorded Confirmed FLUoxetine HCL [PROzac] 40 mg PO DAILY 09/22/17 10/23/20 Pantoprazole [Protonix] 40 mg PO HS 09/22/17 10/23/20 Atorvastatin [Lipitor] 80 mg PO HS 10/23/20 10/23/20 Clopidogrel [Plavix] 75 mg PO DAILY 10/23/20 10/23/20 Metoprolol Tartrate [Lopressor] 25 mg PO BID 10/23/20 10/23/20 Previous Rx's Medication Instructions Recorded Aspirin 81 mg PO DAILY chew 09/25/17 Nitroglycerin Sl Tabs [Nitrostat] 0.4 mg SUBLINGUAL Q5M PRN tab 09/25/17 Meclizine [Antivert] 25 mg PO TID PRN #15 tab 10/23/20 Allergies Allergy/AdvReac Type Severity Reaction Status Date / Time sulfamethoxazole AdvReac Unknown Verified 10/23/20 09:04 [From Bactrim] trimethoprim [From Bactrim] AdvReac Unknown Verified 10/23/20 09:04 Review of Systems ROS Statement: Those systems with pertinent positive or pertinent negative responses have been documented in the HPI. ROS Other: All systems not noted in ROS Statement are negative. Past Medical History Past Medical History: GERD/Reflux, Hyperlipidemia, Pneumonia Additional Past Medical History / Comment(s): 09/22/17 stemi. other pmh includes:hiatal hernia, past gastritis, pne age 15, shingels 2007 affected area(back). History of Any Multi-Drug Resistant Organisms: None Reported Past Surgical History: Heart Catheterization, Heart Catheterization With Stent Additional Past Surgical History / Comment(s): 09/22/17 heart cath w/ stent to rca .tympanoplasty and 2nd sx to patch small hole.d&c, egd w/bx-neh. colonoscopy/polypectomy-benign, hemorrhoidectomy. lump removed from ortiz breast both benign Past Anesthesia/Blood Transfusion Reactions: Previous Problems w/ Anesthesia Additional Past Anesthesia/Blood Transfusion Reaction / Comment(s): they had a hard time waking me up Past Psychological History: No Psychological Hx Reported Smoking Status: Current every day smoker Past Alcohol Use History: Occasional Past Drug Use History: None Reported - Past Family History Mother Family Medical History: Diabetes Mellitus, Hypertension Additional Family Medical History / Comment(s): arrythmia, neuropathy,fibromyalgia,depression. strokes x3 Father Family Medical History: Diabetes Mellitus, Hyperlipidemia, Hypertension, Myocardial Infarction ([place]) Additional Family Medical History / Comment(s): cabg, cataracats, wet macular degeneration General Exam Limitations: no limitations Course Vital Signs 10/23/20 10/23/20 07:55 10:23 Temperature 97.9 F Pulse Rate 76 64 Respiratory 18 20 Rate Blood Pressure 167/82 112/67 O2 Sat by Pulse 97 96 Oximetry EKG Findings - EKG Comments: EKG Findings:: EKG demonstrates a sinus rhythm with a ventricular rate of 71. NC interval 146. QRS 84. QTC 445. No acute ST segment elevations or depressions Medical Decision Making - Medical Decision Making Upon arrival the patient's placed in room 6. A thorough history and physical exam is performed. 12 lead EKG is performed. IV is established. Patient was given a liter bolus of normal saline, 25 mg of meclizine and 325 mg tylenol. Lab studies are conducted and reviewed. The patient is reevaluated and states that she has improvement in her symptoms. I did discuss diagnosis, differential and treatment options. Patient feels comfortable for discharge at this time to follow-up with her primary care doctor within 2-4 days. She'll be given a prescription for meclizine to take at home as needed for dizziness. Instructed that the symptoms should not continue for more than a few days and symptoms should not worsen. The patient does have any new or worsening symptoms she must return back to the emergency department for further evaluation to include MRI, CT and neurology evaluation. Patient understood this. She is given written and verbal discharge instructions and discharged home ambulatory in stable condition - Lab Data Result diagrams: 10/23/20 08:50 10/23/20 08:50 Lab Results 10/23/20 10/23/20 10/23/20 Range/Units 08:50 08:50 08:50 WBC 8.0 (3.8-10.6) k/uL RBC 5.20 (3.80-5.40) m/uL Hgb 14.1 (11.4-16.0) gm/dL Hct 42.5 (34.0-46.0) % MCV 81.7 (80.0-100.0) fL MCH 27.0 (25.0-35.0) pg MCHC 33.1 (31.0-37.0) g/dL RDW 13.6 (11.5-15.5) % Plt Count 369 (150-450) k/uL MPV 7.2 Neutrophils % 65 % Lymphocytes % 26 % Monocytes % 5 % Eosinophils % 2 % Basophils % 1 % Neutrophils # 5.2 (1.3-7.7) k/uL Lymphocytes # 2.1 (1.0-4.8) k/uL Monocytes # 0.4 (0-1.0) k/uL Eosinophils # 0.2 (0-0.7) k/uL Basophils # 0.1 (0-0.2) k/uL PT 10.1 (9.0-12.0) sec INR 0.9 (<1.2) Sodium 136 L (137-145) mmol/L Potassium 4.0 (3.5-5.1) mmol/L Chloride 103 (98-107) mmol/L Carbon Dioxide 25 (22-30) mmol/L Anion Gap 8 mmol/L BUN 10 (7-17) mg/dL Creatinine 0.61 (0.52-1.04) mg/dL Est GFR (CKD-EPI)AfAm >90 (>60 ml/min/1.73 sqM) Est GFR (CKD-EPI)NonAf >90 (>60 ml/min/1.73 sqM) Glucose 135 H (74-99) mg/dL Calcium 9.3 (8.4-10.2) mg/dL Total Bilirubin 0.9 (0.2-1.3) mg/dL AST 31 (14-36) U/L ALT 26 (4-34) U/L Alkaline Phosphatase 99 (38-126) U/L Troponin I (0.000-0.034) ng/mL Total Protein 6.8 (6.3-8.2) g/dL Albumin 4.2 (3.5-5.0) g/dL 10/23/20 Range/Units 08:50 WBC (3.8-10.6) k/uL RBC (3.80-5.40) m/uL Hgb (11.4-16.0) gm/dL Hct (34.0-46.0) % MCV (80.0-100.0) fL MCH (25.0-35.0) pg MCHC (31.0-37.0) g/dL RDW (11.5-15.5) % Plt Count (150-450) k/uL MPV Neutrophils % % Lymphocytes % % Monocytes % % Eosinophils % % Basophils % % Neutrophils # (1.3-7.7) k/uL Lymphocytes # (1.0-4.8) k/uL Monocytes # (0-1.0) k/uL Eosinophils # (0-0.7) k/uL Basophils # (0-0.2) k/uL PT (9.0-12.0) sec INR (<1.2) Sodium (137-145) mmol/L Potassium (3.5-5.1) mmol/L Chloride (98-107) mmol/L Carbon Dioxide (22-30) mmol/L Anion Gap mmol/L BUN (7-17) mg/dL Creatinine (0.52-1.04) mg/dL Est GFR (CKD-EPI)AfAm (>60 ml/min/1.73 sqM) Est GFR (CKD-EPI)NonAf (>60 ml/min/1.73 sqM) Glucose (74-99) mg/dL Calcium (8.4-10.2) mg/dL Total Bilirubin (0.2-1.3) mg/dL AST (14-36) U/L ALT (4-34) U/L Alkaline Phosphatase (38-126) U/L Troponin I <0.012 (0.000-0.034) ng/mL Total Protein (6.3-8.2) g/dL Albumin (3.5-5.0) g/dL Disposition Clinical Impression: Vertigo Disposition: HOME SELF-CARE Condition: Stable Instructions (If sedation given, give patient instructions): Dizziness (ED) Additional Instructions: Please follow-up with your primary care doctor in 2-4 days. Return to the emergency room for any new or worsening symptoms Prescriptions: Meclizine [Antivert] 25 mg PO TID PRN #15 tab PRN Reason: Vertigo Is patient prescribed a controlled substance at d/c from ED?: No Referrals: Anushka Lassiter DO [Primary Care Provider] - 1-2 days Patel Scott MD [STAFF PHYSICIAN] - 1-2 days Time of Disposition: 10:16
[2020-10-23 10:24] VITALS: BP 112/67; PULSE 64; RESP 20
== END 2020-10-23 10:25 | disposition home or self-care (01) ==
LOC: EC 07:50
DX: R42 Dizziness and giddiness (principal); K21.9 Gastro-esophageal reflux disease without esophagitis; E78.5 Hyperlipidemia, unspecified; F17.200 Nicotine dependence, unspecified, uncomplicated
CPT/HCPCS: 36415; 80053; 84484; 85025; 85610; 93005; 96360; 99284